=== PATIENT | male | born 1985 | race Hispanic/Latino ===

== ENCOUNTER → 2018-07-29 | Outpatient (REF) | payer BC ==
[~2018-07-29] MED LIST: AMOXICILLIN/CL875 MG PO; FLEXERIL PO; IBUPROFEN600 MG PO; [UNRECOGNIZED DRUG - OTHER] PO
== END | disposition home or self-care (01) | DRG 552 ==
LOC: DI 12:43
PROVIDERS: ATTEND Nurse Practitioner
DX: M54.5 Low back pain (principal); M25.551 Pain in right hip